=== PATIENT | female | born 1995 | race Caucasian/White ===

== ENCOUNTER → 2017-05-27 | Outpatient (CLI) | payer MEDICAID | LOC: FIMAGING 09:23 | PROVIDERS: ATTEND Obstetrics & Gynecology | DX: O36.5920 Maternal care for other known or suspected poor fetal growth, second trimester, not applicable or unspecified (principal); Z3A.22 22 weeks gestation of pregnancy ==

== ENCOUNTER → 2017-06-01 | Outpatient (CLI) | payer MEDICAID | LOC: FIMAGING 07:22 | PROVIDERS: ATTEND Obstetrics & Gynecology | DX: Z34.02 Encounter for supervision of normal first pregnancy, second trimester (principal); Z3A.23 23 weeks gestation of pregnancy ==

== ENCOUNTER → 2017-06-21 | Outpatient (CLI) | payer MEDICAID | LOC: FIMAGING 11:21 | PROVIDERS: ATTEND Obstetrics & Gynecology | DX: O26.873 Cervical shortening, third trimester (principal); Z3A.26 26 weeks gestation of pregnancy ==